=== PATIENT | female | born 1950 | race Caucasian/White ===

== ENCOUNTER 2019-04-08 09:32 | Day surgery (SDC) | payer MEDICARE, OTHER ==
[~2019-04-08] VITALS: Ht 162.6 cm; Wt 62.1 kg
[~2019-04-08 09:32] MED LIST: AMLODIPINE10 MG PO; CALCIUM1 CAP PO; GLUCOSAMINE CHO1 CAP PO; HCTZ PO; HYDROXYZINE10 M1 PO; MULTI VITAMINS1 TAB PO; NIACIN1 TAB PO; PRILOSEC40 MG PO; SUPER EPA 2002000 MG PO
[2019-04-08 10:39] VITALS: BP 155/78; PULSE 74; TEMP 97.7
[2019-04-08] MEDS ORDERED: ASPIRIN E.C. 8181 MG PO (10:53)
[2019-04-08] MEDS ORDERED: LOPRESSOR 225 MG/TAB PO (10:53)
[2019-04-08] MEDS ORDERED: NORVASC 10MG10 MG PO (10:55)
[2019-04-08] MEDS ORDERED: PRIL40 PO (10:56)
[2019-04-08] MEDS ORDERED: COZAAR 50MG50 MG/TAB PO (10:57)
[2019-04-08] MEDS ORDERED: LIPITOR 10MG10 MG PO (10:58)
[2019-04-08] MEDS ORDERED: MOBIC15 MG PO (11:02)
[2019-04-08] MEDS ORDERED: ATARAX 25MG25 MG/TAB PO (11:03)
[2019-04-08] MEDS ORDERED: DIPROLENE OI 15GM TOP (11:04)
[2019-04-08] MEDS ORDERED: PROBIOTIC FORMU1 CAP PO (11:05)
[2019-04-08] MEDS ORDERED: ZANTAC 150MG T150 MG PO (11:05)
[2019-04-08] MEDS ORDERED: ZYRTEC 10MG10 MG PO (11:06)
[2019-04-08] MEDS ORDERED: OMEGA-3 FISH1000 MG PO (11:07)
[2019-04-08] MEDS ORDERED: MULTI VITAMINS1 TAB PO (11:07)
[2019-04-08] MEDS ORDERED: STOOL SOFTENER100 M2 PO (11:08)
[2019-04-08] MEDS ORDERED: MELATONIN5 M1 PO (11:10)
[2019-04-08 11:50] VITALS: BP 112/69; PULSE 70; TEMP 97.8
[2019-04-08 12:05] VITALS: BP 117/70; PULSE 71
[2019-04-08 12:20] VITALS: BP 114/76; PULSE 67
--- NOTE | 2019-04-08 12:30 | NUR ---
Pt returned via cart to [facility]. SBA to recliner in bay. VSS-see flowsheet. Spouse present in room. Pt tolerated a muffin and juice. Dr Martinez in to visit post procedure. Discharge teaching completed, verbalized understanding. IV removed, dressing applied. Pt dressed and taken via wheelchair to private vehicle for dc home with to drive.
[2019-04-08 13:07] VITALS: BP 109/71; PULSE 63
== END 2019-04-08 12:30 | disposition home or self-care (01) ==
LOC: SDCO 09:32
DX: K29.30 Chronic superficial gastritis without bleeding (principal); K31.7 Polyp of stomach and duodenum; K22.2 Esophageal obstruction; K21.9 Gastro-esophageal reflux disease without esophagitis; I10 Essential (primary) hypertension; I25.10 Atherosclerotic heart disease of native coronary artery without angina pectoris; J42 Unspecified chronic bronchitis; Z79.82 Long term (current) use of aspirin; Z90.49 Acquired absence of other specified parts of digestive tract; Z80.6 Family history of leukemia; Z82.49 Family history of ischemic heart disease and other diseases of the circulatory system; Z88.1 Allergy status to other antibiotic agents; Z88.8 Allergy status to other drugs, medicaments and biological substances
CPT/HCPCS: OP; C1726; J2250; J3010; J7120

== ENCOUNTER 2020-04-03 07:22 | Day surgery (SDC) | payer MEDICARE, OTHER ==
[~2020-04-03] VITALS: Ht 162.6 cm; Wt 62.6 kg
[~2020-04-03 07:22] MED LIST changes: +ASPIRIN E.C. 8181 MG PO; +ATARAX 25MG25 MG/TAB PO; +COZAAR 50MG50 MG/TAB PO; +DIPROLENE OI 15GM TOP; +LIPITOR 10MG10 MG PO; +LOPRESSOR 225 MG/TAB PO; +MELATONIN5 M1 PO; +MOBIC15 MG PO; +NORVASC 10MG10 MG PO; +OMEGA-3 FISH1000 MG PO; +PRIL40 PO; +PROBIOTIC FORMU1 CAP PO; +STOOL SOFTENER100 M2 PO; +ZANTAC 150MG T150 MG PO; +ZYRTEC 10MG10 MG PO
[2020-04-03] MEDS ORDERED: PEPCID40 MG PO (08:13)
[2020-04-03 08:14] VITALS: BP 138/76; PULSE 83; TEMP 97.9
[2020-04-03 09:20] VITALS: BP 113/79; PULSE 74; TEMP 97.8
--- NOTE | 2020-04-03 09:20 | NUR ---
Fina brought back to [facility] via cart. Ambulated to chair with one assist. Iv infusing without difficulty. Vital signs stable. Patient denies pain or nausea. Rain RN at bedside to give report. Patient requesting juice and muffin. Tolerating without difficulty. Call espinal within reach. to pick patient up, waiting in car in parking lot.
[2020-04-03 09:35] VITALS: BP 124/79; PULSE 75
--- NOTE | 2020-04-03 09:35 | NUR ---
Vital signs stable, denies pain or nausea. Will continue to monitor.
[2020-04-03 09:50] VITALS: BP 135/70; PULSE 73
--- NOTE | 2020-04-03 09:50 | NUR ---
Vital signs stable. IV removed, intact. Discharge instructions reviewed with patient, verbalized understanding. called, VM left. Patient to get dressed at this time.
--- NOTE | 2020-04-03 10:00 | NUR ---
Patient brought down to lobby via wheel chair. met at front door. To be driven home by .
== END 2020-04-03 10:00 | disposition home or self-care (01) ==
LOC: SDCO 07:22
DX: Z12.11 Encounter for screening for malignant neoplasm of colon (principal); K57.30 Diverticulosis of large intestine without perforation or abscess without bleeding; K64.0 First degree hemorrhoids; K21.9 Gastro-esophageal reflux disease without esophagitis; I10 Essential (primary) hypertension; I25.10 Atherosclerotic heart disease of native coronary artery without angina pectoris; E78.5 Hyperlipidemia, unspecified; J42 Unspecified chronic bronchitis; Z79.82 Long term (current) use of aspirin; Z79.899 Other long term (current) drug therapy; Z88.1 Allergy status to other antibiotic agents; Z79.2 Long term (current) use of antibiotics
CPT/HCPCS: J2704